=== PATIENT | male | born 2000 | race Caucasian/White ===

== ENCOUNTER 2024-03-14 10:43 | Emergency (ER) | payer MEDICAID ==
[~2024-03-14] VITALS: Ht 177.8 cm; Wt 102.4 kg
[2024-03-14 11:11] VITALS: BP 147/92; PULSE 126; RESP 19; O2SAT 97
[2024-03-14] MEDS ORDERED: ACE650RS PR (11:33)
[2024-03-14] MEDS ORDERED: IBUP-1453 PO (11:33)
--- NOTE | 2024-03-14 13:22 | ED.PDOC ---
History of Present Illness HPI Comments 23-year-old male, with a history of obesity, presents with complaint of mid- upper back pain, today. Patient endorses on having soreness between his shoulder blades for the past couple of weeks and awakening pain the same area, this morning. He states on using pain medications and muscle relaxers to no relief or improvement of symptoms. Patient reports no additional relevant or pertinent history, such as recent injuries or strenuous activities. He denies having any weakness, numbness, tingling, or other associated symptoms or modifying us at this time. Chief Complaint: Back Pain Time Seen by MD: 11:50 Primary Care Provider: CHIKA Reviewed Notes: Nurses Notes, Medications, Allergies Allergies: Coded Allergies: NO KNOWN ALLERGIES (Unverified , 03/14/24) Home Meds Active Scripts Acetaminophen (Tylenol) 650 Mg Rc, 650 MG TN QID for 10 Days, #60 SUPP.RECT Prov:THERESA MURO MD 03/14/24 Ibuprofen (Ibuprofen) 400 Mg Tab, 400 MG PO TID, #60 TAB Prov:THERESA MURO MD 03/14/24 Information Source: Patient Mode of Arrival: Ambulatory Severity: Moderate Timing: Hours Duration: Since onset Prehospital treatment: None Past Medical History Past Medical History (Other): obese Surgical History: Denies all surgeries Family History Family History: Unknown Social History Smoker: Non-Smoker Alcohol: Denies ETOH Use Drugs: Denies Drug Use Lives In: Home Musculoskeletal: reports: back pain All Other Systems: Reviewed and Negative (Negative unless otherwise stated in HPI or above) Physical Exam General Appearance: No Apparent Distress, Obese HEENT: Normal ENT Inspection, Pharynx Normal, TMs Normal Neck: Full Range of Motion, Non-Tender, Normal, Normal Inspection Respiratory: Chest Non-Tender, Lungs Clear, No Accessory Muscle Use, No Respiratory Distress, Normal Breath Sounds Cardiovascular: No Edema, No JVD, No Murmur, No Gallop, Normal Peripheral Pulses, Regular Rate/Rhythm Breast Exam: Deferred Gastrointestinal: No Organomegaly, Non Tender, No Pulsatile Mass, Normal Bowel Sounds, Soft Genitalia: Deferred Pelvic: Deferred Rectal: Deferred Extremities: No calf tenderness, Normal capillary refill, Normal inspection, Normal range of motion, Non-tender, No pedal edema Musculoskeletal : Apperance: Normal Neurologic: Alert, production hand II-XII nml as Tested, No Motor Deficits, Normal Affect, Normal Mood, No Sensory Deficits Cerebellar Function: Normal Reflexes: Normal Skin: Dry, Normal Color, Warm Lymphatic: No Adenopathy Was a procedure done? Was a procedure done?: No Differential Dx Considerations may include: Musculoskeletal pain, spasm X-Ray, Labs, Meds, VS Vital Signs Date Time Temp Pulse Resp B/P (MAP) Pulse Ox O2 Delivery O2 Flow Rate FiO2 03/14/24 11:11 98.9 126 19 147/92 (110) 97 Time of 1ST Reevaluation: 12:20 Reevaluation 1ST: Unchanged Patient Education/Counseling: Diagnosis, Treatment Family Education/Counseling: No Family Present Departure 1 Departure Time of Disposition: 12:30 Impression: Primary Impression: Musculoskeletal pain Disposition: 01 HOME / SELF CARE / HOMELESS Condition: Stable Additional Instructions: Thank you for visiting our Emergency Room. I wish you full and complete recovery. Please follow the following instructions: 1. Take your medication bottles with you to EVERY DOCTOR'S VISIT (including your primary doctor). 2. Please follow up with your primary doctor in 2-3 days or sooner if symptoms do not improve. 3. Please read all the papers given to you at the time of the discharge so that you understand your condition better. 4. Please note that the emergency room visits are focused and not necessarily comprehensive. Therefore, it is possible that some occult medical conditions may go undiagnosed in the ER. 5. The emergency room visits are not and should not be thought of as replacement for regular visits with your primary doctor. 6. Therefore, it is absolutely critical that you follows up with your primary doctor on regular basis to make sure you receives a complete and comprehensive care. 7. I recommended the you take the hospital discharge papers to your primary care physician and other doctors' offices with you. 8. Go to your nearest emergency room if you think your condition gets worse or you think your condition is an emergency. Avoid strenuous activities told her condition improves e-Prescriptions Acetaminophen (Tylenol) 650 Mg Rc 650 MG TN QID for 10 Days, #60 SUPP.RECT Prov: THERESA MURO MD 03/14/24 Ibuprofen (Ibuprofen) 400 Mg Tab 400 MG PO TID, #60 TAB Prov: THERESA MURO MD 03/14/24 Critical Care Note Critical Care Time?: No Stability Stability form required: No Heart Score Heart Score: Heart Score Response (Comments) Value History N/A 0 EKG N/A 0 Age N/A 0 Risk Factors N/A 0 Troponin N/A 0 Total 0 I personally scribed for THERESA MURO MD ([email or web address]) on 03/14/24 at 13:22. Electronically submitted by Nir Chou ([email or web address]). THERESA MURO MD Mar 14, 2024 13:22
== END 2024-03-14 12:52 | disposition home or self-care (01) ==
LOC: ER 10:43
DX: M79.18 Myalgia, other site (principal); E66.9 Obesity, unspecified; Z79.899 Other long term (current) drug therapy